=== PATIENT | male | born 1995 | race Caucasian/White ===

== ENCOUNTER 2020-04-30 18:59 | Inpatient (IN) | payer OTHER, SELFPAY ==
[~2020-04-30] VITALS: Ht 177.8 cm; Wt 109.0 kg
[2020-04-30 19:53] LABS: HEMATOCRIT 50.6 % (42.0-52.0); HEMOGLOBIN 17.5 g/dl (13.5-17.5); MEAN CORPUSCULAR HEMOGLOBIN 30.2 pg (27.0-33.0); MEAN CORPUSCULAR HGB CONC 34.6 g/dl (32.0-36.5); MEAN CORPUSCULAR VOLUME 87.2 fl (80.0-96.0); PLATELET COUNT, AUTOMATED 342 10^3/uL (150-450); WHITE BLOOD COUNT 7.5 10^3/uL (4.0-10.0)
[2020-04-30 20:03] LABS: APPEARANCE, URINE CLEAR (CLEAR); BACTERIA, URINE AUTO NEGATIVE (NEGATIVE); BILIRUBIN, URINE AUTO NEGATIVE (NEGATIVE); BLOOD, URINE BLOOD NEGATIVE (NEGATIVE); COLOR, URINE STRAW (YELLOW); GLUCOSE, URINE (UA) AUTO NEGATIVE (NEGATIVE); KETONE, URINE AUTO 1+ mg/dL (NEGATIVE); LEUKOCYTE ESTERASE, URINE AUTO NEGATIVE (NEGATIVE); NITRITE, URINE AUTO NEGATIVE (NEGATIVE); PROTEIN, URINE AUTO NEGATIVE (NEGATIVE); RBC, URINE AUTO 0 /HPF (0-3); SPECIFIC GRAVITY URINE AUTO 1.004 (1.002-1.035); SQUAMOUS EPITHELIAL CELL UR AU 0 /HPF (0-6); UROBILINOGEN, URINE AUTO 0.2 mg/dL (0.0-2.0); WBC, URINE AUTO 0 /HPF (0-3)
[2020-04-30 20:11] LABS: AMPHETAMINES LEVEL URINE NEGATIVE (NEGATIVE); BARBITURATES URINE NEGATIVE (NEGATIVE); BENZODIAZEPINES URINE NEGATIVE (NEGATIVE); CANNABINOIDS URINE NEGATIVE (NEGATIVE); COCAINE METABOLITE URINE NEGATIVE (NEGATIVE); METHADONE URINE NEGATIVE (NEGATIVE); OPIATES URINE NEGATIVE (NEGATIVE); PHENCYCLIDINE URINE NEGATIVE (NEGATIVE)
[2020-04-30 20:20] LABS: ACETAMINOPHEN LEVEL < 2.0 UG/ML (10.0-30.0); ALBUMIN 4.5 GM/DL (3.2-5.2); ALT/SGPT 47 U/L (12-78); BILIRUBIN,DIRECT 0.2 MG/DL (0.0-0.2); BILIRUBIN,TOTAL 0.6 MG/DL (0.2-1.0); BLOOD UREA NITROGEN 10 MG/DL (7-18); CALCIUM LEVEL 9.2 MG/DL (8.5-10.1); CARBON DIOXIDE LEVEL 25 MEQ/L (21-32); CHLORIDE LEVEL 104 MEQ/L (98-107); CREATININE FOR GFR 1.09 MG/DL (0.70-1.30); ETHYL ALCOHOL (ETHANOL) < 0.003 % (0.000-0.010); GLOMERULAR FILTRATION RATE > 60.0 (>60); GLUCOSE, FASTING 88 MG/DL (70-100); SALICYLATE LEVEL < 1.7 MG/DL (5.0-30.0); SODIUM LEVEL 138 MEQ/L (136-145); THYROID STIMULATING HORMONE 0.857 uIU/ML (0.358-3.740); TOTAL PROTEIN 7.8 GM/DL (6.4-8.2)
[2020-04-30] MEDS ORDERED: LORazepam 2 MG TAB PO ONE (20:45)
[2020-04-30] MEDS ORDERED: MOM 30ML SUSPENSION UDC PO PRN (21:45)
[2020-04-30] MEDS ORDERED: ACETAMINOPHEN TAB 650MG DOSE (2X325MG) PO PRN (21:45)
[2020-04-30] MEDS ORDERED: MAALOX 30 ML SUSP *UDC PO PRN (21:45)
[2020-04-30] MEDS ORDERED: hydrOXYzine 25 MG TAB PO PRN (21:45)
[2020-04-30] MEDS ORDERED: traZODone 50 MG TAB PO PRN (21:45)
[2020-05-01 00:15] VITALS: BP 143/83
[2020-05-01 06:42] VITALS: BP 126/73
--- NOTE | 2020-05-01 13:41 | HPEPDOC ---
General Date of Admission Apr 30, 2020 at 21:45 Date of Service: May 01, 2020 Chief Complaint The patient is a 24-year-old male admitted with a reason for visit of Unspecified Anxiety Disorder. Source: Patient Exam Limitations: No limitations Timing/Duration: Other (few months) Severity: Severe Associated Symptoms: Other (insomnia) History of Present Illness 24 YOM with no PMHx has developed fear of dying,once he goes to sleep. According to pt it started one week ago after smoking a marijuana joint. Later he was unable to function as he did not sleep, one time he took melatonin but thinks it probably was poison. he moved with his father because of fear of dying in his sleep. Pt denies suicidal or homicidal ideations or plans. He has been admitted for further psychiatric management. 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 A-FIB/CHADSVASC A-FIB History Current/History of A-Fib/PAF?: No Review of Systems Constitutional: Denies: Chills, Fever, Malaise, Night Sweats, Weakness, Fatigue, Weight Loss, Lethargy, Other Eyes: Denies: Pain, Vision change, Conjunctivae inflammation, Eyelid inflammation, Redness, Other ENT: Denies: Head Aches, Ear Pain, Dysphagia, Sinus Congestion, Post Nasal Drip, Sore Throat, Epistaxis, Other Symptoms Skin: Denies: Rash, Lesions, Jaundice, Bruising, Itching, Dry, Breakdown, Nail Changes, Other Pulmonary: Denies: Dyspnea, Cough, Pleuritic Chest Pain, Other Symptoms Cardiovascular: Denies: Chest Pain, Palpitations, Orthopnea, Paroxysmal Noc. Dyspnea, Edema, Lt Headedness, Other Symptoms Gastrointestinal: Denies: Nausea, Vomiting, Abdominal Pain, Diarrhea, Constipation, Melena, Hematochezia, Other Symptoms Genitourinary: Denies: Dysuria, Frequency, Incontinence, Hematuria, Retention, Other Symptoms Hematologic: Denies: Bruising, Bleeding Excessively, Petecchia, Purpura, Enlarged Lymph Nodes, Other Hematologic Endocrine: Denies: Polydipsia, Polyphagia, Polyuria, Heat Intolerance, Cold Intolerance, Other Endocrine Sx Musculoskeletal: Denies: Neck Pain, Back Pain, Shoulder Pain, Arm Pain, Hand Pain, Leg Pain, Foot Pain, Joint Pain, Muscle Pain, Spasms, Other Symptoms Neurological: Denies: Weakness, Numbness, Incoordination, Change in speech, Confusion, Seizures, Other Symptoms Psych: Reports: Anxiety, Other Psych (doom feelings) Physical Examination General Exam: Positive: Alert, Cooperative Eye Exam: Positive: PERRLA, Conjunctiva & lids normal ENT Exam: Positive: Atraumatic Neck Exam: Positive: Supple Chest Exam: Positive: Clear to auscultation, Normal air movement Heart Exam: Positive: Rate Normal, Normal S1, Normal S2 Abdomen Exam: Positive: Normal bowel sounds, Soft, Tenderness Extremity Exam: Positive: Normal pulses Skin Exam: Positive: Nl turgor and temperature Neuro Exam: Positive: Strength at 5/5 X4 ext, Cranial Nerves 3-12 NL Psych Exam: Positive: Mood NL, Oriented x 3 Vital Signs Vital Signs Date Time Temp Pulse Resp B/P (MAP) Pulse Ox O2 Delivery O2 Flow Rate FiO2 05/01/20 06:42 96.9 104 18 126/73 (90) 97 Room Air Laboratory Data Labs 24H Laboratory Tests 2 04/30/20 19:22: Nucleated Red Blood Cells % (auto) 0.0, Anion Gap 9, Glomerular Filtration Rate > 60.0, Calcium Level 9.2, Total Bilirubin 0.6, Direct Bilirubin 0.2, Aspartate Amino Transf (AST/SGOT) 15, Alanine Aminotransferase (ALT/SGPT) 47, Alkaline Phosphatase 73, Total Protein 7.8, Albumin 4.5, Albumin/Globulin Ratio 1.4, Thyroid Stimulating Hormone (TSH) 0.857, Salicylates Level < 1.7L, Acetaminophen Level < 2.0L, Ethyl Alcohol Level < 0.003 04/30/20 19:24: Urine Color STRAW, Urine Appearance CLEAR, Urine pH 6.0, Urine Specific Scobey 1.004, Urine Protein NEGATIVE, Urine Glucose (Auto)(UA) NEGATIVE, Urine Ketones (Auto) 1+H, Urine Blood NEGATIVE, Urine Nitrite NEGATIVE, Urine Bilirubin NEGATIVE, Urine Urobilinogen 0.2, Urine Leukocyte Esterase (Auto) NEGATIVE, Urine WBC (Auto) 0, Urine RBC (Auto) 0, Urine Hyaline Casts (Auto) 0, Urine Bacteria (Auto) NEGATIVE, Urine Squamous Epithelial Cells 0, Urine Sperm (Auto) , Urine Opiates Screen NEGATIVE, Urine Methadone Screen NEGATIVE, Urine Barbiturates Screen NEGATIVE, Urine Phencyclidine Screen NEGATIVE, Urine Amphetamines Screen NEGATIVE, Urine Benzodiazepines Screen NEGATIVE, Urine Cocaine Metabolite Screen NEGATIVE, Urine Cannabinoids Screen NEGATIVE CBC/BMP Laboratory Tests 04/30/20 19:22 Problems (1) Generalized anxiety disorder Status: Acute Problem Text: pt admitted to [facility] and individual councelling as per Psych Pharma intervention as per psych Lab work checked= WNL please call as needed, no medical intervention needed. Plan / VTE VTE Prophylaxis Ordered?: No VTE Exclusion Mechanical Proph: Low Risk for VTE VTE Exclusion Pharmacological: At Low Risk for VTE HARDEEP OLSEN MD May 01, 2020 13:41
[2020-05-01 18:36] VITALS: BP 144/89
[2020-05-01] MEDS ORDERED: QUEtiapine FUMARATE 25 MG TAB PO SCH (21:00)
[2020-05-02 06:31] VITALS: BP 125/69
--- NOTE | 2020-05-02 07:48 | MHIPNPDOC ---
[facility] Progress Note Progress Note DATE OF SERVICE: 05/02/20 HISTORY: . VITAL SIGNS: See below. NEW TEST RESULTS: . CURRENT MEDICATIONS: See below. MENTAL STATUS EXAMINATION: Patient is a -year old male, who is . Speech: Is . Language skills are . Thought processes including: . Thought content: . Abstract reasoning, and computation: . Description of associ ations: . Description of abnormal or psychotic thoughts: . Judgment: . Insight: [very limited, good, fair. poor]. Orientation: . Recent and remote memory: . Attention span and concentration: . Language: . Fund of knowledge: . Mood: . Affect: . DIAGNOSES: 1. . 2. . 3. . ASSESSMENT: MANAGEMENT PLAN: . TIME SPENT: minutes. Vital Signs Vital Signs Date Time Temp Pulse Resp B/P (MAP) Pulse Ox O2 Delivery O2 Flow Rate FiO2 05/02/20 06:31 96.0 92 18 125/69 (87) 05/01/20 18:36 99 Room Air Current Medications Current Medications Medications (Trade) Dose Ordered Sig/Francis Route PRN Reason Start Time Stop Time Status Last Admin Dose Admin Acetaminophen (Tylenol Tab) 650 mg Q6HP PRN PO HEADACHE or DISCOMFORT 04/30/20 21:45 Al Hydrox/Mg Hydrox/Simethicone (Mylanta) 30 ml Q4HP PRN PO HEARTBURN/INDIGESTION 04/30/20 21:45 Home Med (Med Rec Complete!) ASDIRECTED XX 04/30/20 22:30 04/30/20 22:31 DC Hydroxyzine HCl (Atarax) 25 mg Q6HP PRN PO ANXIETY/AGITATION 04/30/20 21:45 05/01/20 00:44 Magnesium Hydroxide (Milk Of Magnesia) 30 ml DAILYPRN PRN PO CONSTIPATION 04/30/20 21:45 Miscellaneous (Unresolved Clarification Entry) SEE LABEL COMMENTS DAILY XX 04/30/20 09:00 04/30/20 21:41 DC Quetiapine Fumarate (SEROquel) 25 mg QHS PO 05/01/20 21:00 Trazodone HCl (Desyrel) 50 mg QHSP PRN PO INSOMNIA 04/30/20 21:45 05/01/20 15:16 DC 05/01/20 00:44 Allergies Coded Allergies: No Known Allergies (Unverified , 04/30/20) TESSY PEREZ DO May 02, 2020 07:48
--- NOTE | 2020-05-02 07:56 | MHDSPDOC ---
[facility] Discharge Summary Discharge Summary DATE OF ADMISSION: Apr 30, 2020 at 21:45 DATE OF DISCHARGE: May 02, 2020 at 12:05 DISCHARGE DIAGNOSES: F41.0 Panic disorder [episodic paroxysmal anxiety] F12.10 Cannabis abuse, uncomplicated CONSULTANTS INVOLVED:[ None (basic hospitalist screening)] REASON FOR ADMISSION & TREATMENT AND PROGRESS ON THE UNIT : The patient was admitted to the inpatient mental health unit after presenting. He reportedly had been using marijuana and had panic attacks that have been continuing after his use. Greg reportedly felt somewhat paranoid and came in for treatment. The patient recovered well and returned to a normal mental status exam and requested discharge. The provider notes from the weekend were not made available to me, however, reportedly from the nursing staff, the patient had done well. MEDICATIONS: He was initially tried on Seroquel but refused to take it. DISCHARGE ASSESSMENT[improved] Legal status considerations: The patient at the time of discharge did not meet criteria for involuntary admission/extension due to having a [normal] mental status exam, [fair] insight into the situation, They are engaged in the discharge process, as well as being friendly and amenable in behavioral control and havent been engaging in any observed concerning behavior or ideation recently. They decline voluntary exten lucia/admission at this time and must be discharged in good katherine, as Im unable to make a case for holding the patient against their will. They may have historical risk factors of admissions and other interactions with psychiatry however, those are not modifiable from a clinical perspective. The patient will need to be discharged in good katherine. MENTAL STATUS EXAMINATION ON DISCHARGE: [General: Well dressed with good hygiene Speech: Spontaneous and fluid Thought processes: Linear and logical Thought content: Future orientated Abstract reasoning, and computation: Intact Description of associations: Intact Description of abnormal or psychotic thoughts:Denies any suicidal or homicidal ideation. Denies any auditory or visual hallucinations. Does not appear to be responding to internal stimuli. Does not appear to be endorsing any bizarre or paranoid ideation. Judgment: fair Insight: fair Orientation: Alert and orientated 3 Recent and remote memory: Intact Attention span and concentration: Intact Fund of knowledge: Adequate Mood: "okay" Affect: Euthymic with a full range] PLAN/FOLLOWUP ARRANGEMENTS: Follow up appointments made (PCP and MH in 5 days of D/C date) and safety plan completed. Safety Planning aspects completed prior to discharge [RN reviewed crisis hotline information and other aspects to empower patient to access care in interim before next appointment.] The amount of time spent in the coordination of care for this patient was approximately 30 minutes. Vital Signs/I&Os Vital Signs Date Time Temp Pulse Resp B/P (MAP) Pulse Ox O2 Delivery O2 Flow Rate FiO2 05/02/20 06:31 96.0 92 18 125/69 (87) 05/01/20 18:36 99 Room Air Medications No Active Prescriptions or Reported Meds Allergies Coded Allergies: No Known Allergies (Unverified , 04/30/20) TESSY PEREZ DO May 02, 2020 07:56
--- NOTE | 2020-05-04 09:51 | MHHPE ---
DATE OF ADMISSION: 04/30/2020 DATE OF EVALUATION: 05/01/2020 HISTORY OF PRESENT ILLNESS: This is the first psychiatric hospitalization for this 24-year-old man who was admitted to the hospital due to increasing problems with not being able to sleep for the past few weeks. He talked about feeling afraid that he will in his sleep, that somehow he will forget to breathe. The patient feels that maybe something will suddenly happen, like his heart will stop. 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 He talks about being afraid that maybe he has schizophrenia. He describes having panic attacks where he has shortness of breath, tunnel vision, and chest pain. He did deny any suicidal or homicidal ideations. He denies being depressed. Apparently, he tried taking one dose of melatonin and then he became convinced that maybe it had poisoned him. Today, the patient explained that his problems started a month ago. He says that he decided to smoke some cannabis. He says that in his whole lifetime the most he has used it has been maybe 2-3 times. He says that right away he started to freak out. He says he thought his throat was closing in on him. He collapsed to the floor and he ended up going to the hospital by ambulance, had a full workup. He says things were okay and then 2 weeks later, he says [place] was [place] and he said, I randomly started to freak out right in the middle of a sentence. He says that he attributed it to the fact that he had not slept well the night before and maybe that he was drinking too much caffeine. The following week he said he was okay. However, this past Saturday, he said he fell asleep and woke up in a panic and since then he has had problems with not being able to sleep much. He is afraid to go to sleep, he is worried he is going to forget how to breathe or that his heart will stop. He went to [facility] and they did another workup again and everything was negative. He says this week it has pretty much been nonstop, where he is constantly worried that something is suddenly going to happen to him and he is going to , and he tries not to fall asleep because of that, but then he worries that the fact that he is not sleeping is going to cause him to . He admits that he does look things up a lot online and that at one point he was actually afraid that he had a rare type of insomnia that 13 people in the world have it, and that it is heart related. The patient states that he had another episode or another bout of this about 15 years ago. He said that his father told him that I could get a bubble in my vein. This is because he was blowing air on his arm and air holes. He says that after that he was really worried about his health. He worried, for example, that if he picked up a garcia that he was going to get aluminum poisoning. It lasted for 3 months and then he said that all of a sudden his fathers friend decided to have a talk with him about his fears and he says that after that his fears stopped and he has not had any problems with that again until recently, as noted above. He states that he became so afraid that he actually is back living with his father. Actually, he said he was living with his mom, and then about 5 months ago decided to get his own place but when he became ill again, he really felt that it was best for him to go back to living with someone who did not think that he should keep living on his own. He says the reason why he did not go back to his mothers place is because he has also recently become concerned that he might get the Coronavirus since his mother went to visit his brother about 2 weeks ago in [place]. Therefore, the patient is mostly complaining of anxiety and he seems to have this fear that I think, at this point, is consistent with a delusion that he is going to suddenly. He denies having any problems with depression. I do not elicit any hypomanic or manic-like symptoms in this patient or any history of posttraumatic stress disorder (PTSD) or obsessive compulsive disorder (OCD). PAST PSYCHIATRIC HISTORY: He has never had any prior psychiatric inpatient treatment. He has never made suicidal attempts. He did go to his first outpatient psychiatric clinic appointment last week at [facility]. FAMILY HISTORY: This is negative for any psychiatric illness in the family or any suicides in the family. MEDICAL HISTORY: There is no history of acute medical problems in this patient. ABUSE HISTORY: He has no history of any physical or sexual abuse. SUBSTANCE ABUSE HISTORY: He says he has only used cannabis a few times in his lifetime and the last time he used it was 1 month ago, which is when his severe anxiety and paranoid thoughts started. REVIEW OF SYSTEMS: Vital signs: Blood pressure 126/73, pulse 104, respirations 18. Appearance: He did not appear to be in any apparent distress. Neuromuscular system: The patient is not exhibiting any involuntary movements of the extremities and his gait is normal. All other systems were reviewed and found to be negative. MENTAL STATUS EXAMINATION: This patient is alert and oriented times three. Eye contact is good. He is verbally spontaneous. There is no formal thought disorder noted. Mood is anxious. Affect appropriate to mood. As I said, the patient almost appears to be having some paranoid-type delusions of fear that he is going to . He is denying suicidal or homicidal ideation. Concentration is fair. Memory is intact. Insight and judgment is poor. DIAGNOSES: 1. Unspecified anxiety disorder. 2. Panic disorder. 3. Rule out unspecified somatic symptom and related disorder. 4. Rule out delusional disorder with somatic symptoms. TREATMENT PLAN: At this point, as I said, the patient is having very severe anxiety episodes and severe fears that he is going to , and possibly to the degree where they might be delusions. I am going to give the patient a trial of Seroquel 25 mg nightly for what appears to be delusions and/or anxiety and also this may even help him sleep better. I am going to start it at a very low dose as I am concerned that if he has side effects that that will worsen his anxiety and fear of dying. Also, he has hydroxyzine 25 mg every 4 hours as needed for anxiety. He tried trazodone last night and he did say that he did finally get a few hours of sleep, but we are going to stop the trazodone tonight because I want him to try Seroquel alone first. It is possible he might need the trazodone. We will continue to adjust this medication as indicated and once he is stable he will be discharged with appropriate followup. BOB
== END 2020-05-02 12:05 | disposition home or self-care (01) | DRG 880 ==
LOC: M ED 18:59 → M ED INP 21:45 → M PSY 23:36
PROVIDERS: ADMIT Psychiatry & Neurology Addiction Medicine; ATTEND Psychiatry & Neurology Addiction Medicine
DX: F41.0 Panic disorder [episodic paroxysmal anxiety] (principal); G47.00 Insomnia, unspecified; F41.1 Generalized anxiety disorder; F12.10 Cannabis abuse, uncomplicated

== ENCOUNTER → 2021-06-27 | Outpatient (REF) | payer OTHER | LOC: M LAB REF 17:48 | PROVIDERS: ATTEND Physician Assistant | DX: J02.9 Acute pharyngitis, unspecified (principal) ==